=== PATIENT | male | born 1950 | race Caucasian/White ===

== ENCOUNTER 2017-07-22 17:34 | Emergency (ER) | payer OTHER ==
[~2017-07-22] VITALS: Ht 193 cm; Wt 73.5 kg
[~2017-07-22 17:34] MED LIST: Z.0.NO CURRENT MEDS
[2017-07-22 17:42] VITALS: BP 135/72; PULSE 97; RESP 20; TEMP 98.7; O2SAT 98
[2017-07-22 18:17] LABS: BLOOD, URINE MOD (NEG); GLUCOSE,URINE NEG (NEG); KETONE, URINE 15 mg/dL (NEG); NITRITE,URINE NEG (NEG); PH, URINE 6.5 (5.0-8.5)
[2017-07-22 18:22] LABS: MUCUS URINE MOD /lpf (OCC); URINE COLOR YELLOW (YELLW/STRAW)
[2017-07-22 18:23] LABS: COMMENT (UR) CULTURE INDICATED; CULTURE IF INDICATED CULTURE INDICATED; SQUAMOUS EPITHELIAL CELL URINE 0-5 /hpf (0-5)
[2017-07-22] MEDS ORDERED: TAMS5CAP PO (18:46)
--- NOTE | 2017-07-22 18:49 | PD ---
HPI Chief Complaint: Complaint Time Seen by Provider: 17:47 Travel History International Travel<30 days: No Contact w/Intl Traveler<30days: No Traveled to known affect area: No History of Present Illness HPI This 67-year-old male is complaining of inability to void. He has not been able to void today. Last night he just had some dribbling. He is not aware of any prostate problems. He has had kidney stones many years ago. He is having symptoms of the pain is quite severe. There is been no fever or chills PFSH Past Medical History Medical History: Denies Significant Hx Influenza Vaccination: No Past Surgical History Surgical History: No Previous Surgery Social History Alcohol Use: Yes (wine occassionally) Tobacco Use: Yes Substance Use: Yes (MARIJUANA) Allergies-Medications (Allergen,Severity, Reaction): Coded Allergies: No Known Allergies (Verified Allergy, Mild, 12/29/06) Reported Meds & Prescriptions Reported Meds & Active Scripts Active Flomax (Tamsulosin HCl) 0.4 Mg Cap 0.4 Mg PO HS 30 Days Review of Systems General / Constitutional: No: Fever, Chills Eyes: No: Diploplia, Blurred Vision HENT: No: Headaches Cardiovascular: No: Chest Pain or Discomfort, Palpitations Respiratory: No: Cough, Shortness of Breath Gastrointestinal: No: Nausea, Vomiting Genitourinary: Positive: Decreased Urinary Output Musculoskeletal: No: Myalgias Physical Exam Narrative GENERAL: Well-developed male SKIN: Focused skin assessment warm/dry. HEAD: Atraumatic. Normocephalic. EYES: Pupils equal and round. No scleral icterus. No injection or drainage. ENT: No nasal bleeding or discharge. Mucous membranes pink and moist. NECK: Trachea midline. No JVD. CARDIOVASCULAR: Regular rate and rhythm. No murmur appreciated. RESPIRATORY: No accessory muscle use. Clear to auscultation. Breath sounds equal bilaterally. GASTROINTESTINAL: Abdomen soft, suprapubic fullness and tenderness nondistended. Hepatic and splenic margins not palpable. MUSCULOSKELETAL: No obvious deformities. No clubbing. No cyanosis. No edema. NEUROLOGICAL: Awake and alert. No obvious cranial nerve deficits. Motor grossly within normal limits. Normal speech. PSYCHIATRIC: Appropriate mood and affect; insight and judgment normal. Data Data Last Documented VS Vital Signs Date Time Temp Pulse Resp B/P (MAP) Pulse Ox O2 Delivery O2 Flow Rate FiO2 07/22/17 17:42 98.7 97 20 135/72 (93) 98 Orders Orders Urinalysis - C+S If Indicated (07/22/17 17:50) Urinary Catheter Insert/Apply (07/22/17 17:50) Urine Culture (07/22/17 18:00) Labs Laboratory Tests Test 07/22/17 18:00 Urine Color YELLOW Urine Turbidity CLEAR Urine pH 6.5 Urine Specific [place] 1.016 Urine Protein NEG mg/dL Urine Glucose (UA) NEG mg/dL Urine Ketones 15 mg/dL Urine Occult Blood MOD Urine Nitrite NEG Urine Bilirubin NEG Urine Leukocyte Esterase NEG Urine RBC 4-9 /hpf Urine WBC 6-8 /hpf Urine WBC Clumps OCC Urine Squamous Epithelial Cells 0-5 /hpf Urine Mucus MOD /lpf Microscopic Urinalysis Comment CULTURE INDICATED MDM Medical Decision Making Medical Screen Exam Complete: Yes Emergency Medical Condition: Yes Medical Record Reviewed: Yes Differential Diagnosis Differential includes urinary retention, prostatic enlargement, a pH Narrative Course The catheter was inserted and 1500 cc of urine obtained with relief of his discomfort. There is 6-8 white cells. I will defer antibiotics at this time pending culture. He will be started on Flomax and he'll be released with an indwelling catheter Diagnosis Primary Impression: Urinary retention Referrals: Juan Alberto Barnett MD Additional Instructions: CALL DR BARNETT FOR APPOINTMENT Scripts Tamsulosin (Flomax) 0.4 Mg Cap 0.4 MG PO HS for Manage Prostate Problems for 30 Days, #30 CAP 0 Refills Prov: Boby Bolaños MD 07/22/17 Disposition: 01 DISCHARGE HOME Condition: Stable Boby Bolaños MD Jul 22, 2017 18:49
[2017-07-22 19:06] VITALS: BP 130/72
== END 2017-07-22 19:08 | disposition home or self-care (01) ==
LOC: PHED 17:34
DX: R33.9 Retention of urine, unspecified (principal); Z72.0 Tobacco use; F12.90 Cannabis use, unspecified, uncomplicated
CPT/HCPCS: 51702; 81001; 87086

== ENCOUNTER 2017-07-31 01:07 | Emergency (ER) | payer OTHER ==
[~2017-07-31] VITALS: Ht 190.5 cm; Wt 74.8 kg
[~2017-07-31 01:07] MED LIST changes: +TAMS5CAP PO; -Z.0.NO CURRENT MEDS
[2017-07-31 01:16] VITALS: BP 148/78; PULSE 85; RESP 12; TEMP 97.8; O2SAT 99
--- NOTE | 2017-07-31 01:38 | PD ---
HPI Chief Complaint: Complaint Time Seen by Provider: 01:36 Travel History International Travel<30 days: No Contact w/Intl Traveler<30days: No Traveled to known affect area: No History of Present Illness HPI The patient is a 67-year-old male that had his [place] catheter removed at 9:[address] Lobato's advice. They wanted to put it back in at 3:00 when he didn't urinate but the patient refused. He comes in tonight in severe pain, unable to urinate with bladder distention. PFS Social History Alcohol Use: Yes (wine occassionally) Tobacco Use: Yes Substance Use: Yes (MARIJUANA) Allergies-Medications (Allergen,Severity, Reaction): Coded Allergies: No Known Allergies (Verified , 07/31/17) Reported Meds & Prescriptions Reported Meds & Active Scripts Active Flomax (Tamsulosin HCl) 0.4 Mg Cap 0.4 Mg PO HS 30 Days Review of Systems Except as stated in HPI: all other systems reviewed are Neg Physical Exam Narrative GENERAL: Well-nourished, well-developed patient in moderate to severe distress with his bladder distention. His vital signs show blood pressure 148/78 but are otherwise normal. SKIN: Focused skin assessment warm/dry. HEAD: Normocephalic. EYES: No scleral icterus. No injection or drainage. NECK: Supple, trachea midline. No JVD or lymphadenopathy. CARDIOVASCULAR: Regular rate and rhythm without murmurs, gallops, or rubs. RESPIRATORY: Breath sounds equal bilaterally. No accessory muscle use. GASTROINTESTINAL: Abdomen soft, non-tender, the abdomen is nondistended but the bladder is distended. MUSCULOSKELETAL: No cyanosis, or edema. BACK: Nontender without obvious deformity. No CVA tenderness. Data Data Last Documented VS Vital Signs Date Time Temp Pulse Resp B/P (MAP) Pulse Ox O2 Delivery O2 Flow Rate FiO2 07/31/17 01:16 97.8 85 12 148/78 (101) 99 Orders Orders Urinary Catheter Insert/Apply (07/31/17 01:38) MDM Medical Decision Making Medical Screen Exam Complete: Yes Emergency Medical Condition: Yes Medical Record Reviewed: Yes Interpretation(s) After the catheter was put in 1100 cc of urine was recovered. The patient had tremendous relief. Differential Diagnosis Prostate ureteral obstruction, urinary tract infection-unlikely Narrative Course The patient had a predictable urinary retention, Dr. Lobato warned the patient that this would happen. The patient will follow-up with Dr. Lobato, call the office later on today to set up the appointment. Diagnosis Primary Impression: Urinary retention Additional Instructions: Follow-up with Dr. Lobato. Disposition: 01 DISCHARGE HOME Condition: Stable Rock Santiago MD Jul 31, 2017 01:38
[2017-07-31 02:21] VITALS: BP 136/74; PULSE 78; RESP 16; O2SAT 98
== END 2017-07-31 02:29 | disposition home or self-care (01) ==
LOC: PHED 01:07
DX: R33.9 Retention of urine, unspecified (principal); Z72.0 Tobacco use
CPT/HCPCS: 51702